=== PATIENT | male | born 1995 | race Caucasian/White ===

== ENCOUNTER 2018-05-02 15:44 | Emergency (ER) | payer OTHER ==
--- NOTE | 2018-05-02 16:13 | Emergency Department Record ---
History of Present Illness - General Chief Complaint: Wound, check Stated Complaint: OPEN WOUND ANKLE Time Seen by Provider: 05/02/18 16:05 Source: Patient, RN notes reviewed - History of Present Illness Initial Comments: draining wound in the right ankle medial side of his ankle and this started 4 days ago. two other episodes of staph and he states it feels better when the wound started to drain. Onset/Timin -: Days(s) Initial Visit For: Abscess Returns Today for: Other Symptoms Since Prior Visit: Improved Associated Symptoms: None - Related Data Previous Rx's Medication Instructions Recorded Cephalexin [Keflex] 500 mg PO QID #40 cap 05/02/18 Sulfamethoxazole/Trimethoprim 1 each PO BID #20 tablet 05/02/18 [Bactrim Ds Tablet] Allergies Allergy/AdvReac Type Severity Reaction Status Date / Time No Known Drug Allergies Allergy Verified 05/02/18 15:56 Travel Screening - Travel/Exposure Within Last 30 Days Have you traveled within the last 30 days?: No Review of Systems Reviewed: No additional complaints except as noted below Constitutional: Reports: As per HPI. Denies: Chills, Fever, Malaise, Night sweats, Weakness, Weight change Eyes: Reports: As per HPI. Denies: Eye discharge, Eye pain, Photophobia, Vision change ENT: Reports: As per HPI. Denies: Congestion, Dental pain, Ear pain, Epistaxis , Hearing loss, Throat pain Respiratory: Reports: As per HPI. Denies: Cough, Dyspnea, Hemoptysis, Stridor, Wheezes Cardiovascular: Reports: As per HPI. Denies: Arrhythmia, Chest pain, Dyspnea on exertion, Edema, Murmurs, Orthopnea, Palpitations, Paroxysmal nocturnal dyspnea, Rheumatic Fever, Syncope Endocrine: Reports: As per HPI. Denies: Fatigue, Heat or cold intolerance, Polydipsia, Polyuria Gastrointestinal: Reports: As per HPI. Denies: Abdominal pain, Constipation, Diarrhea, Hematemesis, Hematochezia, Melena, Nausea, Vomiting Genitourinary: Reports: As per HPI. Denies: Dysuria, Frequency, Hematuria, Incontinence, Retention, Testicular pain, Testicular mass, Urgency Musculoskeletal: Reports: As per HPI. Denies: Arthralgia, Back pain, Gout, Joint swelling, Myalgia, Neck pain Skin: Reports: As per HPI. Denies: Bruising, Change in color, Change in hair/ nails, Lesions, Pruritus, Rash Neurological: Reports: As per HPI. Denies: Abnormal gait, Confusion, Headache, Numbness, Paresthesias, Seizure, Tingling, Tremors, Vertigo, Weakness Psychiatric: Reports: As per HPI. Denies: Anxiety, Auditory hallucinations, Depression, Homicidal thoughts, Suicidal thoughts, Visual hallucinations Hematological/Lymphatic: Reports: As per HPI. Denies: Anemia, Blood Clots, Easy bleeding, Easy bruising, Swollen glands Past Medical History - SOCIAL HISTORY Smoking Status: Former smoker Alcohol Use: None Drug Use: None - RESPIRATORY Hx Respiratory Disorders: No - CARDIOVASCULAR Hx Cardio Disorders: No - NEURO Hx Neuro Disorders: No - GI Hx GI Disorders: No - Hx Genitourinary Disorders: No - ENDOCRINE Hx Endocrine Disorders: No - MUSCULOSKELETAL Hx Musculoskeletal Disorders: No - PSYCH Hx Psych Problems: Yes Hx Anxiety: Yes Hx Depression: Yes - HEMATOLOGY/ONCOLOGY Hx Hematology/Oncology Disorders: No Family Medical History Any Significant Family History?: No Physical Exam - General General Appearance: Alert, Oriented x3, Cooperative, No acute distress - Head Head exam: Normal inspection - Eye Eye exam: Normal appearance, PERRL Pupils: Normal accommodation - ENT ENT exam: Normal exam, Mucous membranes moist, Normal external ear exam, Normal orophraynx, TM's normal bilaterally Ear exam: Normal external inspection. negative: External canal tenderness Nasal Exam: Normal inspection. negative: Discharge, Sinus tenderness Mouth exam: Normal external inspection, Tongue normal Teeth exam: Normal inspection. negative: Dental caries Throat exam: Normal inspection. negative: Tonsillar erythema, Tonsillar exudate - Neck Neck exam: Normal inspection, Full ROM. negative: Tenderness - Respiratory Respiratory exam: Normal lung sounds bilaterally. negative: Respiratory distress - Cardiovascular Cardiovascular Exam: Regular rate, Normal rhythm, Normal heart sounds - GI/Abdominal GI/Abdominal exam: Soft, Normal bowel sounds. negative: Tenderness - Rectal Rectal exam: Deferred - exam: Deferred - Extremities Extremities exam: Full ROM, Normal capillary refill, Tenderness - Back Back exam: Reports: Normal inspection, Full ROM. Denies: Muscle spasm, Rash noted, Tenderness - Neurological Neurological exam: Alert, Normal gait, Oriented X3, Reflexes normal - Psychiatric Psychiatric exam: Normal affect, Normal mood - Skin Skin exam: Dry, Intact, Normal color, Warm Course Vital Signs 05/02/18 15:50 Temperature 98.1 F Pulse Rate 88 Respiratory 18 Rate Blood Pressure 151/95 Pulse Ox 97 - Reevaluation(s) Reevaluation #1: his abcsess drained spontaneously and motion of ankle without pain and he said since it drained it is feeling better. It drained this am 05/02/18 16:45 Medical Decision Making - Data Complexity MDM Data: X-Ray Ordered and/or Reviewed (ankle xray neg by me ) - Lab Data Result diagrams: 05/02/18 16:15 Disposition Clinical Impression: Abscess Disposition: Home, Self-Care Condition: (1) Good Instructions: Abscess (ED) Additional Instructions: warm compresses four times a day Prescriptions: Cephalexin [Keflex] 500 mg PO QID #40 cap Sulfamethoxazole/Trimethoprim [Bactrim Ds Tablet] 1 each PO BID #20 tablet Forms: Patient Portal Access Time of Disposition: 16:53 Quality - Quality Measures Quality Measures: N/A - Blood Pressure Screening Does Patient Have Any of the Following: No Blood Pressure Classification: Hypertensive Reading Systolic Measurement: 151 Diastolic Measurement: 95 Screening for High Blood Pressure: < First Hypertensive BP, F/U Documented > [ G8950] First Hypertensive Follow-up Interventions: Referral to alternative/primary care provider.
[2018-05-02] MEDS ORDERED: CEFTRIAXONE 1 GRAM VIAL IM ONE (16:22)
[2018-05-02 16:27] LABS: BASO % 0.2 % (0-6); EOS % 0.9 % (0-6); GRAN % 75.4 % (47-80); HEMATOCRIT 44.1 % (42.0-52.0); HEMOGLOBIN 14.7 gm/dl (14.0-18.0); MEAN CELL VOLUME 82.9 fl (81-97); MEAN CORPUSCULAR HEMOGLOBIN 27.6 pg (27-33); MEAN CORPUSCULAR HGB CONC 33.3 g/dl (32-36); MEAN PLATELET VOLUME 9.2 fl (7.4-10.4); MONO % 10.5 % (0-9); PLATELET COUNT 330 K/uL (130-400); RED BLOOD COUNT 5.32 M/uL (4.40-5.70); RED CELL DISTRIBUTION WIDTH 12.5 % (11.5-14.5); WHITE BLOOD COUNT W/O DIFF 9.7 K/uL (4.2-12.2)
--- NOTE | 2018-05-02 16:52 | Emergency Department Record ---
History of Present Illness - General Chief Complaint: Wound, check Stated Complaint: OPEN WOUND ANKLE Time Seen by Provider: 05/02/18 16:05 Source: Patient, RN notes reviewed - History of Present Illness Onset/Timin -: Days(s) Initial Visit For: Abscess Returns Today for: Other Symptoms Since Prior Visit: Improved Associated Symptoms: None - Related Data Previous Rx's Medication Instructions Recorded Cephalexin [Keflex] 500 mg PO QID #40 cap 05/02/18 Sulfamethoxazole/Trimethoprim 1 each PO BID #20 tablet 05/02/18 [Bactrim Ds Tablet] Allergies Allergy/AdvReac Type Severity Reaction Status Date / Time No Known Drug Allergies Allergy Verified 05/02/18 15:56 Travel Screening - Travel/Exposure Within Last 30 Days Have you traveled within the last 30 days?: No Review of Systems Constitutional: Reports: As per HPI. Denies: Chills, Fever, Malaise, Night sweats, Weakness, Weight change Eyes: Reports: As per HPI. Denies: Eye discharge, Eye pain, Photophobia, Vision change ENT: Reports: As per HPI. Denies: Congestion, Dental pain, Ear pain, Epistaxis , Hearing loss, Throat pain Respiratory: Reports: As per HPI. Denies: Cough, Dyspnea, Hemoptysis, Stridor, Wheezes Cardiovascular: Reports: As per HPI. Denies: Arrhythmia, Chest pain, Dyspnea on exertion, Edema, Murmurs, Orthopnea, Palpitations, Paroxysmal nocturnal dyspnea, Rheumatic Fever, Syncope Endocrine: Reports: As per HPI. Denies: Fatigue, Heat or cold intolerance, Polydipsia, Polyuria Gastrointestinal: Reports: As per HPI. Denies: Abdominal pain, Constipation, Diarrhea, Hematemesis, Hematochezia, Melena, Nausea, Vomiting Genitourinary: Reports: As per HPI. Denies: Dysuria, Frequency, Hematuria, Incontinence, Retention, Testicular pain, Testicular mass, Urgency Musculoskeletal: Reports: As per HPI. Denies: Arthralgia, Back pain, Gout, Joint swelling, Myalgia, Neck pain Skin: Reports: As per HPI. Denies: Bruising, Change in color, Change in hair/ nails, Lesions, Pruritus, Rash Neurological: Reports: As per HPI. Denies: Abnormal gait, Confusion, Headache, Numbness, Paresthesias, Seizure, Tingling, Tremors, Vertigo, Weakness Psychiatric: Reports: As per HPI. Denies: Anxiety, Auditory hallucinations, Depression, Homicidal thoughts, Suicidal thoughts, Visual hallucinations Hematological/Lymphatic: Reports: As per HPI. Denies: Anemia, Blood Clots, Easy bleeding, Easy bruising, Swollen glands Past Medical History - SOCIAL HISTORY Smoking Status: Former smoker Alcohol Use: None Drug Use: None - RESPIRATORY Hx Respiratory Disorders: No - CARDIOVASCULAR Hx Cardio Disorders: No - NEURO Hx Neuro Disorders: No - GI Hx GI Disorders: No - Hx Genitourinary Disorders: No - ENDOCRINE Hx Endocrine Disorders: No - MUSCULOSKELETAL Hx Musculoskeletal Disorders: No - PSYCH Hx Psych Problems: Yes Hx Anxiety: Yes Hx Depression: Yes - HEMATOLOGY/ONCOLOGY Hx Hematology/Oncology Disorders: No Family Medical History Any Significant Family History?: No Course Vital Signs 05/02/18 15:50 Temperature 98.1 F Pulse Rate 88 Respiratory 18 Rate Blood Pressure 151/95 Pulse Ox 97 Medical Decision Making - Lab Data Result diagrams: 05/02/18 16:15 Lab Results 05/02/18 05/02/18 Range/Units 16:13 16:15 WBC 9.7 (4.2-12.2) K/uL RBC 5.32 (4.40-5.70) M/uL Hgb 14.7 (14.0-18.0) gm/dl Hct 44.1 (42.0-52.0) % MCV 82.9 (81-97) fl MCH 27.6 (27-33) pg MCHC 33.3 (32-36) g/dl RDW 12.5 (11.5-14.5) % Plt Count 330 (130-400) K/uL MPV 9.2 (7.4-10.4) fl Gran % 75.4 (47-80) % Lymphocytes % 13.0 L (16-45) % Monocytes % 10.5 H (0-9) % Eosinophils % 0.9 (0-6) % Basophils % 0.2 (0-6) % Group A Strep Screen Cancelled Disposition Clinical Impression: Abscess Disposition: Home, Self-Care Condition: (1) Good Instructions: Abscess (ED) Additional Instructions: warm compresses four times a day Prescriptions: Cephalexin [Keflex] 500 mg PO QID #40 cap Sulfamethoxazole/Trimethoprim [Bactrim Ds Tablet] 1 each PO BID #20 tablet Forms: Patient Portal Access Quality - Quality Measures Quality Measures: N/A - Blood Pressure Screening Does Patient Have Any of the Following: No Blood Pressure Classification: Hypertensive Reading Systolic Measurement: 151 Diastolic Measurement: 95 Screening for High Blood Pressure: < First Hypertensive BP, F/U Documented > [ G8950] First Hypertensive Follow-up Interventions: Referral to alternative/primary care provider.
--- NOTE | 2018-05-03 15:05 | RADIOLOGY REPORT ---
EXAM: RIGHT ANKLE HISTORY: PAIN. TECHNIQUE: Three views of the right ankle were performed. FINDINGS: No evidence of fracture or dislocation. There is soft tissue swelling. IMPRESSION: SOFT TISSUE SWELLING. NO EVIDENCE OF FRACTURE. JOB NUMBER: [id number] [facility]
== END 2018-05-02 17:12 | disposition home or self-care (01) ==
LOC: ER 15:44
DX: L02.415 Cutaneous abscess of right lower limb (principal)
CPT/HCPCS: 85025; 96372; 99283; 99284

== ENCOUNTER 2019-06-21 13:48 | Emergency (ER) | payer OTHER ==
--- NOTE | 2019-06-21 15:29 | Emergency Department Record ---
History of Present Illness - General Chief complaint: Extremity Problem Stated complaint: LEFT ANKLE INJURY Time Seen by Provider: 06/21/19 15:19 Source: Patient Mode of Arrival: Ambulatory Limitations: No limitations - History of Present Illness Initial comments: The patient sustained a laceration to the L medial ankle due to a broken vase 11 days ago. He did have it sutured in [place] and did have the sutures removed yesterday at an . Now the wound appears to be opening up. The patient was placed on an oral abx yesterday. MD Complaint: Extremity pain Onset/Timin -: Days(s) Location: Left Radiation: Distal Severity scale (1-10): 3 Quality: Aching - Related Data Previous Rx's Medication Instructions Recorded Cephalexin [Keflex] 500 mg PO QID #40 cap 05/02/18 Allergies Allergy/AdvReac Type Severity Reaction Status Date / Time No Known Drug Allergies Allergy Verified 06/21/19 15:09 Travel Screening - Travel/Exposure Within Last 30 Days Have you traveled within the last 30 days?: No - Travel/Exposure Within Last Year Have you traveled outside the [place] in the last year?: No - Additonal Travel Details Have you been exposed to anyone with a communicable illness?: No - Travel Symptoms Symptom Screening: None Review of Systems Constitutional: Denies: Chills, Fever Past Medical History - SOCIAL HISTORY Smoking Status: Former smoker Alcohol Use: Rare Drug Use: None - RESPIRATORY Hx Respiratory Disorders: No - CARDIOVASCULAR Hx Cardio Disorders: No - NEURO Hx Neuro Disorders: No - GI Hx GI Disorders: No - Hx Genitourinary Disorders: No - ENDOCRINE Hx Endocrine Disorders: No - MUSCULOSKELETAL Hx Musculoskeletal Disorders: No - PSYCH Hx Psych Problems: Yes Hx Anxiety: Yes Hx Depression: Yes - HEMATOLOGY/ONCOLOGY Hx Hematology/Oncology Disorders: No Family Medical History Any Significant Family History?: Yes Physical Exam - General General Appearance: Alert, Oriented x3, Cooperative, No acute distress - Head Head exam: Atraumatic - Eye Eye exam: Normal appearance - Extremities Extremities exam: Other (The L foot is NVI.). negative: Normal inspection (There is a 2.5 cm laceration just over the L medial malleolus that has now opened up 1 mm. There is no surrounding swelling but very mild erythema.) Course Vital Signs 06/21/19 15:01 Temperature 97.4 F L Pulse Rate 96 H Respiratory 16 Rate Blood Pressure 141/82 Pulse Ox 100 - Reevaluation(s) Reevaluation #1: I did place steri strips on the wound of the L ankle. There were no complications. I did explain to the patient that due to the possible early infection I was not able to re-suture it. We will refer the patient to Dr. Katarina webster for further evaluation. 06/21/19 16:01 Medical Decision Making - Data Complexity MDM Data: X-Ray Ordered and/or Reviewed - Radiology Data Radiology results: Report reviewed (L ankle: Neg.) Disposition Disposition: Discharge Clinical Impression: Wound of ankle Qualifiers: Encounter type: initial encounter Laterality: left Qualified Code(s): S91.002A - Unspecified open wound, left ankle, initial encounter Disposition: Home, Self-Care Condition: (2) Stable Instructions: Laceration Without Closure (ED) Additional Instructions: Please keep the ankle dry for 3 days and then no soaking or swimming. Continue your oral antibiotics as directed. Please have the ankle rechecked next week with Dr. Hearn. Please call for an appointment. Referrals: Anthony Hearn [email or web address] [DOCTOR OF PODIATRY MEDICINE] - Forms: Patient Portal Access Time of Disposition: 15:59 Quality - Quality Measures Quality Measures: N/A - Blood Pressure Screening View Details: Yes Does Patient Have Any of the Following: No Blood Pressure Classification: Pre-Hypertensive BP Reading Systolic Measurement: 141 Diastolic Measurement: 82 Screening for High Blood Pressure: < Pre-Hypertensive BP, F/U Documented > [G8950] Pre-Hypertensive Follow-up Interventions: Referral to alternative/primary care provider.
--- NOTE | 2019-06-21 15:53 | RADIOLOGY REPORT ---
EXAMINATION: Left Ankle, Complete Minimum Three Views EXAM DATE: 06/21/2019 3:35 PM TECHNIQUE: AP, lateral, and oblique INDICATION: Medial ankle trauma COMPARISON: None ENCOUNTER: Initial FINDINGS: 3 views of the left ankle show no evidence of fracture or dislocation. Alignment is anatomic. Ankle m ortise is intact. There is soft tissue swelling and laceration medially. IMPRESSION: No fracture or dislocation. Dictated by: Vivek Brody MD on 06/21/2019 3:50 PM. .
== END 2019-06-21 16:08 | disposition home or self-care (01) ==
LOC: ER 13:48
DX: S91.002A Unspecified open wound, left ankle, initial encounter (principal); X58.XXXA Exposure to other specified factors, initial encounter; Z87.891 Personal history of nicotine dependence
CPT/HCPCS: 99283